=== PATIENT | female | born 1940 | race Caucasian/White ===

== ENCOUNTER 2023-01-07 16:04 | Outpatient (REF) | payer MEDICARE, SELFPAY ==
[2023-01-07 17:28] LABS: MANUAL DIFF FLAG NO
[2023-01-07 17:51] LABS: Basophils Absolute Auto 0.1 X10*3/uL (0.0-0.2); Basophils Percent Auto 1.1 % (0-2); Eosinophils Absolute Auto 0.1 X10*3/uL (0.0-0.4); Eosinophils Percent Auto 2.2 % (0-4); Hematocrit 45.9 % (37.0-47.0); Hemoglobin 13.7 g/dl (12.0-16.0); Imm Gran Abs Auto 0.01 X10*3/uL (0.00-0.03); Imm Gran Pct Auto 0.2 % (0.0-0.4); Lymphocytes Absolute Auto 1.5 X10*3/uL (1.2-4.9); Lymphocytes Percent Auto 23.4 % (20-40); Mean Corpuscular HGB Conc 29.8 g/dl (31.0-35.0); Mean Corpuscular Hemoglobin 23.7 pg (27.0-33.0); Mean Corpuscular Volume 79.4 fL (80.0-98.0); Mean Platelet Volume 9.2 fL (9.4-12.3); Monocytes Absolute Auto 0.4 X10*3/uL (0.1-1.2); Monocytes Percent Auto 6.5 % (2-11); Neutrophils Absolute Auto 4.3 x10*3/uL (2.0-8.3); Neutrophils Percent Auto 66.6 % (45-73); Platelet Count 307 X10*3/uL (160-400); Red Blood Count 5.78 X10*6/uL (4.20-5.50); White Blood Count 6.5 X10*3/uL (4.8-10.8)
[2023-01-07 18:34] LABS: Erythrocyte Sedimentation Rate 8 MM/HR (0-20)
[2023-01-07 19:05] LABS: Alanine Aminotransferase 29 U/L (0-31); Albumin Level 3.8 g/dL (3.5-5.0); Alkaline Phosphatase 164 U/L (39-117); Anion Gap 16 (12-20); Aspartate Amino Transferase 27 U/L (5-31); Blood Urea Nitrogen 18 mg/dL (9-16); Calcium 10.5 mg/dL (8.4-10.2); Carbon Dioxide 22 mmol/L (22-29); Chloride 105 mmol/L (96-108); Estimated Glomerular Filt Rate 54; Glucose Random 96 mg/dL (60-115); Potassium 4.4 mmol/L (3.3-5.1); Sodium 139 mmol/L (135-145); Total Protein 7.7 g/dL (6.5-8.0)
[2023-01-07 19:25] LABS: Thyroid Stimulating Hormone 2.14 uIU/mL (0.32-4.0)
[2023-01-07 19:27] LABS: Vitamin B12 406 pg/mL (200-900)
[2023-01-16 13:47] LABS: Vitamin D 25-OH, D2 6 ng/mL; Vitamin D 25-OH, D3 25 ng/mL; Vitamin D 25-OH, Total 31 ng/mL (30-100)
== END 2023-01-07 16:05 | disposition home or self-care (01) ==
LOC: HO.MANLDS 16:04
PROVIDERS: Visit Provider Internal Medicine
DX: E43 Unspecified severe protein-calorie malnutrition (principal); E44.0 Moderate protein-calorie malnutrition; R63.1 Polydipsia
CPT/HCPCS: 36415; 80053; 82306; 82607; 82746; 84443; 85025; 85652